=== PATIENT | male | born 1990 | race Caucasian/White ===

== ENCOUNTER 2020-07-02 21:39 | Emergency (ER) | payer OTHER ==
[~2020-07-02 21:39] MED LIST: AUGMENTIN 500-1 EACH PO; NAPROXEN500 MG PO; ONDANSETRON HCL4 MG PO; TYLENOL #31 EACH PO
[2020-07-02 22:22] LABS: BASOPHIL 0.3 % (0-2); EOSINOPHIL 0.5 % (0-5); HCT 41.1 % (42.0-52.0); HGB 13.2 g/dl (13.2-18.0); MCH 28.6 pg (25.0-31.0); MCHC 32.1 g/dL (32.0-36.0); MONOCYTE 5.2 % (0-12); MPV 9.6 fL (6.0-9.5); NEUTROPHIL 63.7 % (41-80); NRBC 0; PLT 247 K/uL (150-400); RBC 4.62 M/uL (4.70-6.00); RDW 15.5 % (11.5-14.0); WBC 8.7 K/uL (4.0-10.5)
[2020-07-02 22:32] LABS: INR 1.06 (0.9-1.2); PROTHROMBIN TIME 13.1 SECONDS (11.4-13.6); PTT 26.7 SECONDS (22.2-34.7)
[2020-07-02 22:38] LABS: BUN/CREAT RATIO (CALC) 17.3 RATIO; CREATININE 0.81 mg/dL (0.67-1.17); POTASSIUM 3.4 mmol/L (3.5-5.1)
[2020-07-02 22:47] LABS: AMPHETAMINES NEGATIVE (NEGATIVE); BARBITURATES NEGATIVE (NEGATIVE); ECSTASY (MDMA) NEGATIVE (NEGATIVE); MARIJUANA (THC) NEGATIVE (NEGATIVE); METHADONE NEGATIVE (NEGATIVE); OPIATES NEGATIVE (NEGATIVE); OXYCODONE NEGATIVE (NEGATIVE)
[2020-07-02 22:52] LABS: ALBUMIN 3.8 g/dL (3.4-5.0); BILIRUBIN - DIRECT 0.1 mg/dL (0.00-0.20); BILIRUBIN - TOTAL 0.4 mg/dL (0.2-1.0); GLOBULIN (CALCULATION) 3.3 g/dL; TOTAL PROTEIN 7.1 g/dL (6.4-8.2)
== END 2020-07-03 01:57 | disposition other institution (70) ==
LOC: FER 21:39
PROVIDERS: Emergency Medicine Emergency Medical Services
DX: S41.112A Laceration without foreign body of left upper arm, initial encounter (principal); T18.2XXA Foreign body in stomach, initial encounter; F31.9 Bipolar disorder, unspecified; Z23 Encounter for immunization; X78.9XXA Intentional self-harm by unspecified sharp object, initial encounter
CPT/HCPCS: 36415; 71045; 74018; 80048; 80076; 80305; 85025; 85610; 85730; 90471; 90715; 96372; 96374; J2060; J7030

== ENCOUNTER 2020-07-17 15:44 | Emergency (ER) | payer OTHER | END 2020-07-17 18:36 | LOC: FER 15:44 | DX: Z04.89 Encounter for examination and observation for other specified reasons (principal) | CPT/HCPCS: 70360; 74018 ==

== ENCOUNTER 2020-07-22 15:59 | Emergency (ER) | payer OTHER ==
[2020-07-22 17:00] LABS: BASOPHIL 0.6 % (0-2); EOSINOPHIL 0.4 % (0-5); HCT 45.7 % (42.0-52.0); HGB 14.7 g/dl (13.2-18.0); LYMPHOCYTE 23.2 % (15-48); MCH 28.5 pg (25.0-31.0); MCHC 32.2 g/dL (32.0-36.0); MCV 88.6 fL (78.0-100.0); MONOCYTE 5.9 % (0-12); MPV 9.8 fL (6.0-9.5); NEUTROPHIL 69.6 % (41-80); NRBC 0; PLT 277 K/uL (150-400); RBC 5.16 M/uL (4.70-6.00); RDW 14.7 % (11.5-14.0); WBC 6.9 K/uL (4.0-10.5)
[2020-07-22 17:25] LABS: ALBUMIN 4.3 g/dL (3.4-5.0); ALKALINE PHOSHATASE 69 U/L (46-116); ALT 22 U/L (16-63); AST 18 U/L (15-37); BILIRUBIN - TOTAL 0.4 mg/dL (0.2-1.0); BUN 13 mg/dL (7-18); BUN/CREAT RATIO (CALC) 15.5 RATIO; CHLORIDE 102 mmol/L (98-107); CO2 (BICARBONATE) 26 mmol/L (21-32); CREATININE 0.84 mg/dL (0.67-1.17); GLUCOSE 102 mg/dL (74-106); POTASSIUM 4.2 mmol/L (3.5-5.1); TOTAL PROTEIN 8.3 g/dL (6.4-8.2)
[2020-07-22 17:27] LABS: ACETAMINOPHEN (TYLENOL) < 2.0 ug/mL (10.0-30.0)
[2020-07-22 17:36] LABS: BILIRUBIN NEGATIVE (NEGATIVE); BLOOD NEGATIVE Ery/uL (NEGATIVE); CLARITY CLEAR (CLEAR); COLOR YELLOW (YELLOW); GLUCOSE (U) NORMAL (NORMAL); LEUKOCYTES NEGATIVE Leu/uL (NEGATIVE); NITRITE NEGATIVE (NEGATIVE); PROTEIN NEGATIVE (NEGATIVE); SPECIFIC GRAVITY <=1.005 (1.001-1.030); UROBILINOGEN 0.2 mg/dL (0.2-1.0)
[2020-07-22 17:39] LABS: AMPHETAMINES NEGATIVE (NEGATIVE); BARBITURATES NEGATIVE (NEGATIVE); ECSTASY (MDMA) NEGATIVE (NEGATIVE); MARIJUANA (THC) NEGATIVE (NEGATIVE); METHADONE NEGATIVE (NEGATIVE); OPIATES NEGATIVE (NEGATIVE); OXYCODONE NEGATIVE (NEGATIVE)
== END 2020-07-22 23:13 ==
LOC: FER 15:59
PROVIDERS: Emergency Medicine
DX: T18.8XXA Foreign body in other parts of alimentary tract, initial encounter (principal); S41.112A Laceration without foreign body of left upper arm, initial encounter; R45.6 Violent behavior; X78.9XXA Intentional self-harm by unspecified sharp object, initial encounter; X83.8XXA Intentional self-harm by other specified means, initial encounter; Z20.822 Contact with and (suspected) exposure to COVID-19
CPT/HCPCS: 36415; 74018; 80053; 80305; 81003; 85025; 96372; G0480; J3410; U0002

== ENCOUNTER 2020-08-15 20:01 | Emergency (ER) | payer OTHER ==
[2020-08-15 20:32] LABS: BASOPHIL 0.5 % (0-2); EOSINOPHIL 4.5 % (0-5); HCT 46.6 % (42.0-52.0); HGB 14.9 g/dl (13.2-18.0); LYMPHOCYTE 30.4 % (15-48); MCH 27.9 pg (25.0-31.0); MCV 87.1 fL (78.0-100.0); MONOCYTE 5.5 % (0-12); MPV 10.1 fL (6.0-9.5); NEUTROPHIL 58.9 % (41-80); NRBC 0; PLT 287 K/uL (150-400); RBC 5.35 M/uL (4.70-6.00); RDW 14.1 % (11.5-14.0); WBC 8.4 K/uL (4.0-10.5)
[2020-08-15 20:35] LABS: BILIRUBIN NEGATIVE (NEGATIVE); BLOOD NEGATIVE Ery/uL (NEGATIVE); CLARITY CLEAR (CLEAR); COLOR YELLOW (YELLOW); GLUCOSE (U) NORMAL (NORMAL); LEUKOCYTES NEGATIVE Leu/uL (NEGATIVE); NITRITE NEGATIVE (NEGATIVE); PROTEIN NEGATIVE (NEGATIVE); SPECIFIC GRAVITY <=1.005 (1.001-1.030); UROBILINOGEN 0.2 mg/dL (0.2-1.0); pH 5.5 (5.0-9.0)
[2020-08-15 20:38] LABS: AMPHETAMINES NEGATIVE (NEGATIVE); BARBITURATES NEGATIVE (NEGATIVE); ECSTASY (MDMA) NEGATIVE (NEGATIVE); MARIJUANA (THC) NEGATIVE (NEGATIVE); METHADONE NEGATIVE (NEGATIVE); OPIATES NEGATIVE (NEGATIVE); OXYCODONE NEGATIVE (NEGATIVE)
[2020-08-15 20:51] LABS: ALBUMIN 4.2 g/dL (3.4-5.0); ALKALINE PHOSHATASE 76 U/L (46-116); ALT 24 U/L (16-63); AST 13 U/L (15-37); BILIRUBIN - TOTAL 0.3 mg/dL (0.2-1.0); BUN 18 mg/dL (7-18); CHLORIDE 103 mmol/L (98-107); CO2 (BICARBONATE) 26 mmol/L (21-32); GLOBULIN (CALCULATION) 3.8 g/dL; GLUCOSE 97 mg/dL (74-106); POTASSIUM 4.3 mmol/L (3.5-5.1)
[2020-08-15 20:54] LABS: ACETAMINOPHEN (TYLENOL) < 2.0 ug/mL (10.0-30.0)
== END 2020-08-16 11:09 ==
LOC: FER 20:01
PROVIDERS: Emergency Medicine Emergency Medical Services
DX: R56.9 Unspecified convulsions (principal); R45.851 Suicidal ideations; F99 Mental disorder, not otherwise specified; Z79.899 Other long term (current) drug therapy; Z20.822 Contact with and (suspected) exposure to COVID-19
CPT/HCPCS: 36415; 70450; 71045; 80053; 80305; 81003; 85025; 96372; G0480; J1170; J1200; J1885; J2060; J3486; U0002

== ENCOUNTER 2020-08-26 19:10 | Emergency (ER) | payer OTHER | END 2020-08-27 05:00 | disposition other institution (70) | LOC: FER 19:10 | DX: S41.112A Laceration without foreign body of left upper arm, initial encounter (principal); F60.2 Antisocial personality disorder; F20.0 Paranoid schizophrenia; F19.10 Other psychoactive substance abuse, uncomplicated; F17.200 Nicotine dependence, unspecified, uncomplicated; Z76.5 Malingerer [conscious simulation]; Z20.822 Contact with and (suspected) exposure to COVID-19; X78.8XXA Intentional self-harm by other sharp object, initial encounter | CPT/HCPCS: 71045; 74018; 96372; 96374; J1200; J2060; J3486; U0002 ==

== ENCOUNTER 2020-08-27 14:45 | Emergency (ER) | payer OTHER ==
[2020-08-27 16:22] LABS: BASOPHIL 0.5 % (0-2); EOSINOPHIL 3.7 % (0-5); HCT 42.2 % (42.0-52.0); MCH 28.4 pg (25.0-31.0); MCHC 33.2 g/dL (32.0-36.0); MCV 85.6 fL (78.0-100.0); MONOCYTE 7.1 % (0-12); MPV 10.1 fL (6.0-9.5); NEUTROPHIL 61.6 % (41-80); NRBC 0; PLT 271 K/uL (150-400); RBC 4.93 M/uL (4.70-6.00); RDW 14.1 % (11.5-14.0); WBC 8.2 K/uL (4.0-10.5)
[2020-08-27 16:38] LABS: ALBUMIN 3.8 g/dL (3.4-5.0); BILIRUBIN - TOTAL 0.2 mg/dL (0.2-1.0); GLOBULIN (CALCULATION) 3.6 g/dL; POTASSIUM 4.5 mmol/L (3.5-5.1); TOTAL PROTEIN 7.4 g/dL (6.4-8.2)
== END 2020-08-27 18:33 | disposition other institution (70) ==
LOC: FER 14:45
PROVIDERS: Emergency Medicine
DX: S51.011A Laceration without foreign body of right elbow, initial encounter (principal); S51.012A Laceration without foreign body of left elbow, initial encounter; F32.9 Major depressive disorder, single episode, unspecified; F17.200 Nicotine dependence, unspecified, uncomplicated; Z20.822 Contact with and (suspected) exposure to COVID-19; X78.9XXA Intentional self-harm by unspecified sharp object, initial encounter
CPT/HCPCS: 36415; 80053; 85025; J2060

== ENCOUNTER 2020-08-28 15:16 | Emergency (ER) | payer OTHER ==
[2020-08-28 18:44] LABS: BASOPHIL 0.5 % (0-2); EOSINOPHIL 2.3 % (0-5); HGB 11.7 g/dl (13.2-18.0); LYMPHOCYTE 22.7 % (15-48); MCH 28.6 pg (25.0-31.0); MCHC 33.4 g/dL (32.0-36.0); MCV 85.6 fL (78.0-100.0); MONOCYTE 5.5 % (0-12); NEUTROPHIL 68.6 % (41-80); NRBC 0; PLT 236 K/uL (150-400); RBC 4.09 M/uL (4.70-6.00); RDW 13.9 % (11.5-14.0); WBC 10.4 K/uL (4.0-10.5)
[2020-08-28 19:06] LABS: ALBUMIN 3.8 g/dL (3.4-5.0); BILIRUBIN - TOTAL 0.3 mg/dL (0.2-1.0); CREATININE 0.92 mg/dL (0.67-1.17); GLOBULIN (CALCULATION) 3.1 g/dL; POTASSIUM 4.2 mmol/L (3.5-5.1); TOTAL PROTEIN 6.9 g/dL (6.4-8.2)
== END 2020-08-28 19:22 ==
LOC: FER 15:16
PROVIDERS: Emergency Medicine
DX: T18.4XXA Foreign body in colon, initial encounter (principal); F20.0 Paranoid schizophrenia; F32.9 Major depressive disorder, single episode, unspecified; Z79.899 Other long term (current) drug therapy
CPT/HCPCS: 36415; 71045; 74018; 80053; 85025; 96372; J1885; J2060

== ENCOUNTER 2020-09-02 14:49 | Emergency (ER) | payer OTHER ==
[2020-09-02 16:31] LABS: AMPHETAMINES NEGATIVE (NEGATIVE); BARBITURATES POSITIVE (NEGATIVE); ECSTASY (MDMA) NEGATIVE (NEGATIVE); MARIJUANA (THC) NEGATIVE (NEGATIVE); METHADONE NEGATIVE (NEGATIVE); OPIATES NEGATIVE (NEGATIVE); OXYCODONE NEGATIVE (NEGATIVE)
== END 2020-09-02 20:30 ==
LOC: FER 14:49
PROVIDERS: Nurse Practitioner Family
DX: S09.90XA Unspecified injury of head, initial encounter (principal); S41.112A Laceration without foreign body of left upper arm, initial encounter; S41.111A Laceration without foreign body of right upper arm, initial encounter; Z91.5 Personal history of self-harm; X83.8XXA Intentional self-harm by other specified means, initial encounter; Y92.149 Unspecified place in prison as the place of occurrence of the external cause
CPT/HCPCS: 70450; 72125; 80305; 96372; J1630; J3486

== ENCOUNTER 2020-09-13 19:22 | Emergency (ER) | payer OTHER | END 2020-09-13 20:15 | LOC: FER 19:22 | DX: T18.9XXA Foreign body of alimentary tract, part unspecified, initial encounter (principal); S00.83XA Contusion of other part of head, initial encounter; X83.8XXA Intentional self-harm by other specified means, initial encounter | CPT/HCPCS: 99284 ==

== ENCOUNTER 2020-09-24 15:50 | Emergency (ER) | payer OTHER | END 2020-09-24 16:35 | disposition home or self-care (01) | LOC: FER 15:50 | DX: S51.812A Laceration without foreign body of left forearm, initial encounter (principal); Z91.14 Patient's other noncompliance with medication regimen; X78.9XXA Intentional self-harm by unspecified sharp object, initial encounter; Y92.149 Unspecified place in prison as the place of occurrence of the external cause | CPT/HCPCS: 99283 ==

== ENCOUNTER 2021-01-09 11:12 | Emergency (ER) | payer OTHER ==
[2021-01-09 13:38] LABS: BASOPHIL 0.1 % (0-2); EOSINOPHIL 0 % (0-5); HGB 11.2 g/dl (13.2-18.0); LYMPHOCYTE 19.6 % (15-48); MCH 19.9 pg (25.0-31.0); MCHC 28.7 g/dL (32.0-36.0); MCV 69.3 fL (78.0-100.0); MONOCYTE 7.7 % (0-12); MPV 9.6 fL (6.0-9.5); NEUTROPHIL 72.3 % (41-80); NRBC 0; PLT 344 K/uL (150-400); RBC 5.63 M/uL (4.70-6.00); RDW 19.9 % (11.5-14.0); WBC 6.9 K/uL (4.0-10.5)
[2021-01-09 13:58] LABS: ACETAMINOPHEN (TYLENOL) < 2.0 ug/mL (10.0-30.0); ALBUMIN 3.8 g/dL (3.4-5.0); ALKALINE PHOSHATASE 72 U/L (46-116); ALT 17 U/L (16-63); AST 19 U/L (15-37); BILIRUBIN - TOTAL 0.3 mg/dL (0.2-1.0); BUN 20 mg/dL (7-18); BUN/CREAT RATIO (CALC) 21.3 RATIO; CHLORIDE 105 mmol/L (98-107); CO2 (BICARBONATE) 24 mmol/L (21-32); CREATININE 0.94 mg/dL (0.67-1.17); GLOBULIN (CALCULATION) 4.2 g/dL; GLUCOSE 99 mg/dL (74-106); POTASSIUM 3.9 mmol/L (3.5-5.1)
== END 2021-01-09 13:53 | disposition left against medical advice (07) ==
LOC: FER 11:12
PROVIDERS: Emergency Medicine
DX: T40.1X1A Poisoning by heroin, accidental (unintentional), initial encounter (principal); F19.10 Other psychoactive substance abuse, uncomplicated; F12.10 Cannabis abuse, uncomplicated; F17.200 Nicotine dependence, unspecified, uncomplicated
CPT/HCPCS: 36415; 71045; 80053; 84484; 85025; 93005; G0480

== ENCOUNTER 2021-02-22 06:01 | Emergency (ER) | payer OTHER | END 2021-02-22 07:16 | LOC: FER 06:01 | DX: F11.10 Opioid abuse, uncomplicated (principal); F17.200 Nicotine dependence, unspecified, uncomplicated | CPT/HCPCS: 99283 ==

== ENCOUNTER 2021-04-06 10:32 | Emergency (ER) | payer OTHER ==
[2021-04-06 12:52] LABS: BASOPHIL 0.2 % (0-2); EOSINOPHIL 0.1 % (0-5); HGB 7.2 g/dl (13.2-18.0); LYMPHOCYTE 8.4 % (15-48); MCH 18.9 pg (25.0-31.0); MCHC 28.8 g/dL (32.0-36.0); MCV 65.8 fL (78.0-100.0); MONOCYTE 7.6 % (0-12); MPV 8.9 fL (6.0-9.5); NRBC 0; PLT 499 K/uL (150-400); RDW 18.4 % (11.5-14.0); WBC 13.5 K/uL (4.0-10.5)
[2021-04-06 13:07] LABS: INR 1.24 (0.9-1.2); PROTHROMBIN TIME 14.9 SECONDS (11.8-13.4); PTT 41.7 SECONDS (24.4-34.7)
[2021-04-06 13:08] LABS: D-DIMER 2.46 ug/mLFEU (0.00-0.41)
[2021-04-06 13:25] LABS: LACTIC ACID 0.6 mmol/L (0.4-1.9)
[2021-04-06 13:27] LABS: ALKALINE PHOSHATASE 111 U/L (46-116); ALT 18 U/L (16-63); AST 14 U/L (15-37); BILIRUBIN - TOTAL 0.4 mg/dL (0.2-1.0); BUN 14 mg/dL (7-18); BUN/CREAT RATIO (CALC) 17.1 RATIO; CHLORIDE 94 mmol/L (98-107); CO2 (BICARBONATE) 26 mmol/L (21-32); CPK 53 U/L (39-308); CREATININE 0.82 mg/dL (0.67-1.17); GLOBULIN (CALCULATION) 4.7 g/dL; GLUCOSE 121 mg/dL (74-106); LDH 157 U/L (85-227); MAGNESIUM 1.7 mg/dL (1.8-2.4); POTASSIUM 4.3 mmol/L (3.5-5.1); TOTAL PROTEIN 7.7 g/dL (6.4-8.2)
[2021-04-06 13:35] LABS: C-REACTIVE PROTEIN < 0.20 mg/dL (<=0.90)
== END 2021-04-06 14:33 | disposition other institution (70) ==
LOC: FER 10:32
PROVIDERS: Emergency Medicine
DX: L03.114 Cellulitis of left upper limb (principal); S51.812A Laceration without foreign body of left forearm, initial encounter; T79.A12A Traumatic compartment syndrome of left upper extremity, initial encounter; D64.9 Anemia, unspecified; F17.210 Nicotine dependence, cigarettes, uncomplicated; W26.8XXA Contact with other sharp object(s), not elsewhere classified, initial encounter
CPT/HCPCS: 36415; 73090; 73120; 80053; 82550; 83605; 83615; 83735; 84145; 85025; 85379; 85610; 85730; 86140; 86850; 86900; 86901; 86922; 87040; 93005; J1170; J2405; J2543; J3370; J7030; J7050

== ENCOUNTER 2021-05-16 01:13 | Emergency (ER) | payer OTHER | END 2021-05-16 01:57 | disposition home or self-care (01) | LOC: FER 01:13 | DX: Z02.89 Encounter for other administrative examinations (principal); F17.200 Nicotine dependence, unspecified, uncomplicated | CPT/HCPCS: 99283 ==